=== PATIENT | male | born 1985 | race Caucasian/White ===

== ENCOUNTER 2017-03-02 05:33 | Inpatient (IN) | payer OTHER ==
[2017-03-02] VITALS (10 sets, daily range): BP systolic 118–161; BP diastolic 63–89
[~2017-03-02] VITALS: Ht 182.9 cm; Wt 73.0 kg
[~2017-03-02 05:33] MED LIST: Chloraseptic Spray 20mL Bottle ORAL PRN; HYDROcodone/Acetamin 10/325 tab ORAL PRN; HYDROmorphone 1mg/ml Carpuject SUBQ PRN; oxyCODONE 5mg IR tab ORAL PRN
[2017-03-02] MEDS ORDERED: ceFAZolin 1gm/50ml Premix 50 ML IV ONE (06:00)
[2017-03-02] MEDS ORDERED: MEDICAL MARIJUANA IH (06:08)
[2017-03-02] MEDS ORDERED: LR 1000ml 1,000 ML IVLG SCH (06:11)
[2017-03-02] MEDS ORDERED: Ketorolac 60mg Inj IV PRN (06:15)
[2017-03-02] MEDS ORDERED: Atropine Inj 1mg/10ml Syr IV PRN (06:15)
[2017-03-02] MEDS ORDERED: DiphenhydrAMINE 50mg/ml Inj IVP PRN (06:15)
[2017-03-02] MEDS ORDERED: LORazepam Inj 2mg/ml 1ml IV PRN (06:15)
[2017-03-02] MEDS ORDERED: Midazolam 2mg/2ml Inj IVP PRN (06:15)
[2017-03-02] MEDS ORDERED: fentaNYL 100 mcg/2 mL IV PRN (06:15)
[2017-03-02] MEDS ORDERED: Ketorolac 30mg Inj IV PRN ×2 (06:15→06:30)
[2017-03-02] MEDS ORDERED: Surgicel 4in x 8in TOPIC ONE (06:31)
[2017-03-02] MEDS ORDERED: Bupivacaine 0.5% Inj 30 ml vial INJ ONE (06:31)
[2017-03-02] MEDS ORDERED: Lidocaine 1% Plain 30 ml INJ ONE ×2 (06:31→07:00)
[2017-03-02] MEDS ORDERED: Vancomycin 1gm inj IVPB ONE (06:31)
[2017-03-02] MEDS ORDERED: Thrombin 5000 units TOPIC ONE (06:31)
[2017-03-02] MEDS ORDERED: Bacitracin 50000 Units Vial ONE (06:32)
[2017-03-02] MEDS ORDERED: Acetaminophen (Non formulary) 100 ML IV ONE (06:45)
--- NOTE | 2017-03-02 06:46 | Anethesia Preoperative Eval ---
Anesthesia Pre-op PMH/ROS General Date of Evaluation: Mar 02, 2017 Time of Evaluation: 07:11 Anesthesiologist: Cece ASA Score: ASA 2 Mallampati Score Class I : Soft palate, uvula, fauces, pillars visible Class II: Soft palate, uvula, fauces visible Class III: Soft palate, base of uvula visible Class IV: Only hard plate visible Mallampati Classification: Class II Surgeon: Kyaw Diagnosis: Neck Pain Surgical Procedure: ACDF C4-5, C5-6 Anesthesia History: none Social History: current smoker - Smoker Family History: no anesthesia problems Allergies: Coded Allergies: ACETAMINOPHEN (Verified Allergy, Mild, 03/02/17) ITCHING OXYCODONE (Verified Allergy, Mild, 03/02/17) ITCHING Medications: see eMAR Past Medical History Pulmonary: Reports: other Neurologic/Psychiatric: Reports: depression/anxiety Anesthesia Pre-op Phys. Exam Physician Exam Last Vital Signs Date Time Temp Pulse Resp B/P (MAP) Pulse Ox O2 Delivery O2 Flow Rate FiO2 03/02/17 06:24 98.2 73 20 118/69 97 Room Air Constitutional: NAD Neurologic: CN 2-12 intact Cardiovascular: RRR Respiratory: CTA Gastrointestinal: S/NT/ND Airway Exam Mallampati Score: Class II MO: full ROM: limited Teeth: broken - L lower Molar Anesthesia Pre-op A/P Risk Assessment & Plan Assessment: ASA 2 Plan: GA, BIS, GlideScope Status Change Before Surgery: No Pre-Antibiotics Dru Grams Ancef IV Given Within 1 Hr of Incision: Yes Time Given: 07:31 Devyn Zhao MD Mar 02, 2017 06:46
--- NOTE | 2017-03-02 06:47 | Immediate Post-Op Evaluation ---
Immediate Post-Op Evalulation Immediate Post-Op Evalulation Procedure: ACDF C4-5, C5-6 Date of Evaluation: Mar 02, 2017 Time of Evaluation: 10:35 IV Fluids: 1000 LR Blood Products: 0 Estimated Blood Loss: 50 Urinary Output: 0 Blood Pressure Systolic: 136 Blood Pressure Diastolic: 87 Pulse Rate: 81 Respiratory Rate: 16 O2 Sat by Pulse Oximetry: 100 Temperature (Fahrenheit): 97.8 Pain Score (1-10): 3 Nausea: No Vomiting: No Complications 0 Patient Status: awake, reacts, patent, extubated, none Hydration Status: adequate Dru Grams Ancef IV Given Within 1 Hr of Incision: Yes Time Given: 07:31 Devyn Zhao MD Mar 02, 2017 06:47
[2017-03-02] MEDS ORDERED: Neostigmine 1mg/ml 10ml Inj ONE (07:00)
[2017-03-02] MEDS ORDERED: LR 1000ml ONE (07:00)
[2017-03-02] MEDS ORDERED: Zemuron 50mg/5ml Inj IV ONE (07:00)
[2017-03-02] MEDS ORDERED: Sodium Chloride 10ml vial INJ ONE (07:00)
[2017-03-02] MEDS ORDERED: Dexamethasone 20mg/5ml IVP ONE (07:00)
[2017-03-02] MEDS ORDERED: Lidocaine 1% MPF 10mg/ml 5ml ONE (07:00)
[2017-03-02] MEDS ORDERED: Naloxone 0.4mg/ml Inj ONE (07:00)
[2017-03-02] MEDS ORDERED: Glycopyrrolate 0.2mg/ml 1ml Vial ONE (07:00)
[2017-03-02] MEDS ORDERED: fentaNYL 100 mcg/2 mL IV ONE (07:00)
[2017-03-02] MEDS ORDERED: Propofol 1,000mg/ 100ml btl IV ONE (07:00)
[2017-03-02] MEDS ORDERED: NS Irrig 1000ml ONE (07:00)
[2017-03-02] MEDS ORDERED: Sterile Water Irrig 1000ml IRRIG ONE (07:00)
--- NOTE | 2017-03-02 07:14 | Pre-Procedure Note/Attestation ---
Pre-Procedure Note/Attestation Attestation I attest that I discussed the nature of the procedure; its benefits; risks and complications; and alternatives (and the risks and benefits of such alternatives ), prior to the procedure, with the patient (or the patient's legal national account representative). I attest that, if there was a reasonable possibility of needing a blood transfusion, the patient (or the patient's legal national account representative) was given the [facility] standardized written summary, pursuant to the Sunil Gerald Blood Safety Act ([place] Health and Safety Code # 1645, as amended). I attest that I re-evaluated the patient just prior to the surgery and that there has been no change in the patient's H&P, except as documented below: YURIY MANN Mar 02, 2017 07:14
--- NOTE | 2017-03-02 07:15 | Pre-Procedure Note/Attestation ---
Pre-Procedure Note/Attestation Complete Prior to Procedure Planned Procedure: not applicable Procedure Narrative: C4-5 C5-6: ACDF possible RACHEL Indications for Procedure Pre-Operative Diagnosis: Post trauma neckpain discogenic Attestation I attest that I discussed the nature of the procedure; its benefits; risks and complications; and alternatives (and the risks and benefits of such alternatives ), prior to the procedure, with the patient (or the patient's legal investment representative). I attest that, if there was a reasonable possibility of needing a blood transfusion, the patient (or the patient's legal investment representative) was given the [facility] standardized written summary, pursuant to the Sunil Gerald Blood Safety Act ([place] Health and Safety Code # 1645, as amended). I attest that I re-evaluated the patient just prior to the surgery and that there has been no change in the patient's H&P, except as documented below: YURIY MANN Mar 02, 2017 07:15
--- NOTE | 2017-03-02 10:14 | Brief Operative Note ---
Immediate Post Operative Note Operative Note Pre-op Diagnosis: Post trauma neckpain discogenic Procedure: ACDF C4-5 C5-6 anterior plate ssep xray microdisection Post-op Diagnosis: same as pre-op Findings: consistent w/pre-op dx studies Surgeon: Kyaw Audio Tape Librarian: Colin Additional Surgeons: JANES Anesthesiologist: Cece BRAVO Anesthesia: general Specimen: none Complications: none Condition: stable Fluids: anesthesia Estimated Blood Loss: minimal Drains: none Implant(s) used?: Yes YURIY MANN Mar 02, 2017 10:14
[2017-03-02] MEDS ORDERED: D5 1/2NS 1,000 ML IV SCH (12:30)
[2017-03-02] MEDS ORDERED: Naloxone 0.4mg/ml Inj IVP PRN (12:30)
[2017-03-02] MEDS ORDERED: Dronabinol 2.5mg Cap ORAL ONE (12:45)
[2017-03-02] MEDS ORDERED: NORCO 10-325 T1 EACH ORAL (13:35)
[2017-03-02] MEDS ORDERED: D5 1/2NS 1000ml IV ONE (14:07)
--- NOTE | 2017-03-02 14:45 | Operative Note - Dictated ---
DATE OF OPERATION: 03/02/2017 ADMITTING/PREOPERATIVE DIAGNOSIS: Cervical discogenic radiculopathy, posttraumatic, with neck pain. POSTOPERATIVE DIAGNOSIS: Cervical discogenic radiculopathy, posttraumatic, with neck pain. SURGEON: Milo Card, Ph.D., M.D. LIGHT BULB TESTER: JANES Rousseau. ANESTHESIOLOGIST: Devyn Zhao M.D. ANESTHESIA: General with intubation. ESTIMATED BLOOD LOSS: Less than 5 mL. COMPLICATIONS: None. POSTOPERATIVE CONDITION: Good/stable. OPERATIVE PROCEDURE: 1. Anterior interbody reconstruction and fusion, C4-C5, C5-C6, with bo-vertebrectomy, C4, C5, C6. 2. Anterior internal plate fixation, C4, C5, C6. 3. Osteopromotive material, C4-C5, C5-C6, with correction of deformity. 4. Tritanium interbody titanium porous ingrowth spacers. 5. Anterior internal plate fixation, [employer]tron[employer]. 6. Intraoperative x-rays interpreted by surgeon. 7. High-powered microscopic dissection. 8. SSEP monitoring. DESCRIPTION OF PROCEDURE: The patient was brought to the operating room and in the supine position, general anesthesia with intubation was induced. IV antibiotics and IV Decadron were administered 30 minutes prior to incision time. After appropriate positioning, a cross-table radiograph was obtained with marker taped to the skin without penetration of the skin. Determination of level for incision placement. Marker was removed. Skin sterilely prepped and draped free in usual sterile fashion. Transverse left incision at the appropriate interval was sharply placed through dermis and epidermis overlying the medial aspect of the left sternocleidomastoid muscle. Sharp dissection was carried through dermis and epidermis. Electrocautery dissection through subcutaneous tissue to the level of the platysmas muscle that was identified, isolated, and transected in line with the incision. Blunt dissection was sequentially carried through the deep cervical and pretracheal fascia to the midline to the medial aspect of the sternocleidomastoid muscle left and the carotid sheaths. Disk space identified. Spinal needle placed into the disk space under direct observation, high-powered, with needle bent at 90-degree angle so as to avoid penetration greater than 3 mm. Cross-table radiograph was obtained demonstrating the correct level. Marker utilization. Needle removed. Subperiosteal elevation of the longus colli muscles, right and left of midline, not exceeding 3 mm from the medial and lateral extent, C4-C5, C5-C6. C5-C6: With SSEP monitoring remained stable at all times. Discectomy was performed followed by resection of a large anterior osteophyte with Midas Rashel bur dissection. Bo-vertebrectomy of inferior C5 and superior C6 to the posterior longitudinal ligament. Interpositional grafting with the appropriate-dimension lordotic Tritanium cage containing osteopromotive material. Fit excellent. Cross-table imaging demonstrated excellent alignment and positioning. Retractor was replaced at the C4-C5 interval. Moderate anterior osteophyte resected under high-power magnification at inferior C4 and superior C5. Discectomy with bo-vertebrectomy of inferior C4 and superior C5 to posterior longitudinal ligament. Interpositional grafting with the appropriately-sized Tritanium graft containing osteopromotive material lordotic with correction of deformity to lordosis. All traction on the neck (10 pounds) was removed. Anterior internal plate fixation was undertaken in a compressive fashion. [employer] plate with bilateral internal fixation at C4 and C6, and lateral left internal fixation at C5. Screws locked into position. Purchase excellent. Radiograph obtained demonstrating excellent alignment and positioning. Radiograph printed. Wound irrigated with antibiotic-containing saline. Observation revealed no obvious excoriation or laceration of vital structures. HemoSeal applied overlying the operative level. Reapproximation of platysmas muscle, dermis, and epidermis with subcuticular absorbable sutures. Surgical strips placed followed by Dermabond. The patient awakened and extubated in the operating room and transported to postop recovery in good and stable condition. Milo Card M.D. DR: LISA JOB#: [id number] CC:
--- NOTE | 2017-03-02 15:13 | Diagnostic Imaging Report ---
Indication: Neck pain, intraoperative imaging Technique: Intraoperative images Comparison: none Findings: Surgical tool projects at the anterior aspect of the C4-5 disc. Subsequent images demonstrate anterior fusion and placement of disc spacers from C4 through C6. Impression: Intraoperative imaging, as described
[2017-03-02] MEDS ORDERED: ceFAZolin sod 1 GM in D5W 55 ML IV SCH (16:00)
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
[2017-03-02] MEDS ORDERED: Dronabinol 2.5mg Cap ORAL SCH (22:00)
[2017-03-03 08:46] VITALS: BP 126/86
--- NOTE | 2017-03-03 08:46 | 48 Hour Post Anesthesia Eval ---
Post Anesthesia Evaluation Procedure: ACDF C4-5, C5-6 Date of Evaluation: Mar 03, 2017 Time of Evaluation: 08:45 Blood Pressure Systolic: 126 0: 86 Pulse Rate: 75 Respiratory Rate: 18 Temperature (Fahrenheit): 97.5 O2 Sat by Pulse Oximetry: 99 Airway: patent Nausea: No Vomiting: No Hydration Status: adequate Cardiopulmonary Status: Stable Mental Status/LOC: patient returned to baseline Follow-up Care/Observations: As per surgery patient has been discharged to home Post-Anesthesia Complications: No anesthetic complication Follow-up care needed: N/A JANIA ESPINOZA M.D. Mar 03, 2017 08:46
--- NOTE | 2017-03-03 14:47 | Discharge Summary ---
Discharge Summary Hospital Course Date of Admission Mar 02, 2017 at 05:33 Date of Discharge Mar 02, 2017 at 14:08 Admitting Diagnosis HPI Nawaf Garcia is a 32 year old male who was admitted on Mar 02, 2017 at 05:33 for Cervical Discogenic Pain Hospital Course [id number] Discharge Discharge Disposition Patient was discharged to Home (01) Discharge Diagnoses: Shoshana Hawley NP Mar 03, 2017 14:47
--- NOTE | 2017-03-03 23:00 | Discharge Summary 2 SIG ---
DATE OF ADMISSION: 03/02/2017 DATE OF DISCHARGE: 03/02/2017 BRIEF HOSPITAL COURSE: The patient is a 32-year-old male, who was diagnosed with posttraumatic discogenic neck pain, was admitted and underwent ACDF on C4-C5 and C5-C6. He tolerated the procedure well. Postoperatively, he was seen by Dr. Fay for pain management. He was placed on SCDs for DVT prophylaxis and underwent PT evaluation. Diet was eventually advanced and was discharged home. FINAL DIAGNOSIS: Cervical discogenic radiculopathy, posttraumatic with neck pain, status post ACDF of C4-C5 and C5-C6. Refer to operative report. DISPOSITION: The patient was discharged home. DISCHARGE MEDICATIONS: Refer to medication list. DISCHARGE INSTRUCTIONS: Follow up with Surgery in a week. Milo Card M.D. I have been assigned to dictate discharge summary on this account and I was not involved in the patient's management. Shoshana Hawley N.P. DR: TANNER JOB#: [id number] CC:
== END 2017-03-02 14:08 | disposition home or self-care (01) | DRG 30 ==
LOC: SDSOVERFLO 05:33 → 3E 11:59
PROC: 0RG20A0 Fusion of 2 or more Cervical Vertebral Joints with Interbody Fusion Device, Anterior Approach, Anterior Column, Open Approach (ICD-10-PCS; principal; 2017-03-02 07:00)
PROC: 0RB30ZZ Excision of Cervical Vertebral Disc, Open Approach (ICD-10-PCS; principal; 2017-03-02 07:00)
DX: M54.12 Radiculopathy, cervical region (principal); F17.200 Nicotine dependence, unspecified, uncomplicated; T14.90XS Injury, unspecified, sequela; X58.XXXS Exposure to other specified factors, sequela; Z88.6 Allergy status to analgesic agent
CPT/HCPCS: 36415; 72040; 76001; 86850; 86900; 86901; 87081; 94003; 94150; J2405; J2710